=== PATIENT | male | born 1960 | race Caucasian/White ===

== ENCOUNTER 2022-12-08 08:42 | Emergency (ER) | payer OTHER ==
[~2022-12-08] VITALS: Ht 177.8 cm; Wt 84.8 kg
[2022-12-08 08:49] VITALS: BP_SYST 162
[2022-12-08] MEDS ORDERED: ACETAMINOPHEN 500 MG TABLET PO ONE (09:15)
[2022-12-08] MEDS ORDERED: CYCL10TA24 PO ×3 (12:17→13:25)
[2022-12-08] MEDS ORDERED: ACET-2634 PO ×3 (12:17→13:25)
[2022-12-08] MEDS ORDERED: IBUP-1969 PO ×3 (12:17→13:25)
[2022-12-08] MEDS ORDERED: ACETAMINOPHEN 500 MG TABLET ONE (12:41)
[2022-12-08 12:50] VITALS: BP_SYST 119
== END 2022-12-08 12:50 | disposition home or self-care (01) ==
LOC: SED 08:42
DX: S16.1XXA Strain of muscle, fascia and tendon at neck level, initial encounter (principal); S46.812A Strain of other muscles, fascia and tendons at shoulder and upper arm level, left arm, initial encounter; Z79.899 Other long term (current) drug therapy; V89.2XXA Person injured in unspecified motor-vehicle accident, traffic, initial encounter; Y93.89 Activity, other specified; Y92.89 Other specified places as the place of occurrence of the external cause; Y99.8 Other external cause status
CPT/HCPCS: 70450-TC; 72125-TC; 73030; 76376; 99284